=== PATIENT | male | born 2000 | race Caucasian/White ===

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

== ENCOUNTER 2018-06-05 18:25 | Observation (INO) | payer BC ==
[2018-06-05] MEDS ORDERED: ALBUTEROL NEB SOL 2.5MG/3ML 1 VIAL SOL NEB PRN (18:38)
[2018-06-05] MEDS: SODIUM CHLORIDE 0.9% FLUSH 10 ML SOL IV SCH (21:13)
[2018-06-06] MEDS: SODIUM CHLORIDE 0.9% FLUSH 10 ML SOL IV SCH (03:08)
[2018-06-06 08:25] VITALS: BP 156/91; PULSE 99; RESP 22; TEMP 98; O2SAT 96
== END 2018-06-06 08:32 | disposition home or self-care (01) ==
LOC: ACUTE CARE 18:25
PROVIDERS: ADMIT Family Medicine; ATTEND Family Medicine
DX: J98.01 Acute bronchospasm (principal); R06.02 Shortness of breath; R05 Cough
CPT/HCPCS: 94150; 94762; J7613